=== PATIENT | male | born 1975 | race Caucasian/White ===

== ENCOUNTER 2017-06-09 16:43 | Emergency (ER) | payer SELFPAY ==
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
[2017-06-09 17:25] LABS: eGFR (African) > 60; eGFR (Non-African) > 60
[2017-06-09 17:28] LABS: BASOPHILS % 0.8 (0.0-1.5); EOSINOPHILS % 1.7 % (0.0-6.8); MEAN CORPUSCULAR HEMOGLOBIN 30.7 pg (28.0-34.0); MEAN CORPUSCULAR VOLUME 94.6 fl (80.0-100.0); MONOCYTES % 5.6 % (0.0-11.0); NEUTROPHILS # 6.6 # k/uL (1.4-7.7)
[2017-06-09] MEDS: ONDANSETRON HCL/PF 4 MG/ 2ML VIAL IVP ONE (18:05)
[2017-06-09] MEDS: fentaNYL CITRATE/PF 100 MCG/ 2ML AMP IVP ONE (18:06)
[2017-06-09] MEDS: ONDANSETRON HCL/PF 4 MG/ 2ML VIAL ONE (18:12)
[2017-06-09] MEDS: fentaNYL CITRATE/PF 100 MCG/ 2ML AMP ONE (18:12)
[2017-06-09 18:19] VITALS: BP 132/73
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
== END 2017-06-09 18:10 | disposition short-term general hospital (02) ==
LOC: ED 16:43
DX: S09.90XA Unspecified injury of head, initial encounter (principal); S12.9XXA Fracture of neck, unspecified, initial encounter; V89.2XXA Person injured in unspecified motor-vehicle accident, traffic, initial encounter; Y93.9 Activity, unspecified; Y99.9 Unspecified external cause status
CPT/HCPCS: 70450; 72125; 80053; 80320; 82550; 82553; 84484; 85025; 85610; 96374; 96375; 99284; J2405; J3010; G0480; S1016